=== PATIENT | female | born 1965 | race Caucasian/White ===

== ENCOUNTER 2017-02-12 11:40 | Emergency (ER) | payer OTHER ==
[2017-02-12] MEDS ORDERED: oxyCODONE/Acetamin 5/325 MG* TAB PO ONE (13:42)
[2017-02-12 14:10] VITALS: BP 95/52
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
== END 2017-02-12 14:07 | disposition home or self-care (01) ==
LOC: ED 11:40
DX: R51 Headache (principal); Z87.891 Personal history of nicotine dependence
CPT/HCPCS: 99283; A9270-GY

== ENCOUNTER 2017-08-16 17:40 | Emergency (ER) | payer OTHER ==
--- NOTE | 2017-08-16 19:36 | RAD ---
INDICATION: Right knee pain. TECHNIQUE: 4 views of the right knee were obtained. FINDINGS: The bones are in normal alignment. No joint effusion or fracture is seen. Joint spaces appear maintained. IMPRESSION: NO EVIDENCE FOR FRACTURE.
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
[2017-08-16 22:50] VITALS: BP 102/68
== END 2017-08-16 22:50 | disposition home or self-care (01) ==
LOC: ED 17:40
DX: M25.561 Pain in right knee (principal); Z87.891 Personal history of nicotine dependence
CPT/HCPCS: 99282

== ENCOUNTER 2017-11-06 18:54 | Emergency (ER) | payer OTHER ==
[2017-11-06 19:09] VITALS: BP 125/70
--- NOTE | 2017-11-06 19:12 | UC ---
Respiratory Complaint HPI - HPI Summary HPI Summary: 51 year old female presents with cough, nasal congestion and headache. - History of Current Complaint Chief Complaint: UCRespiratory Stated Complaint: COUGH/COLD Time Seen by Provider: 11/06/17 19:12 Hx Obtained From: Patient Hx Last Menstrual Period: post menopausal Onset/Duration: Lasting Days Severity Initially: Moderate Severity Currently: Moderate Pain Scale Used: 0-10 Numeric - 5 Aggravating Factors: Exertion, Deep Breaths Associated Signs And Symptoms: Positive: Nasal Congestion Related History: Seasonal Allergies - Allergies/Home Medications Allergies/Adverse Reactions: Allergies Allergy/AdvReac Type Severity Reaction Status Date / Time Hydrocodone Allergy Nausea Verified 02/12/17 11:42 Topiramate [From Topamax] Allergy See Comment Verified 11/06/17 19:10 Naproxen AdvReac Severe "MAKES ME Verified 02/12/17 11:42 FEEL WEIRD" Home Medications: Home Medications Phenylephrine-Diphenhydramine- [MUCINEX FAST-MAX DAY/NIGH (Tablet)] 11/06/17 [ History] PMH/Surg Hx/FS Hx/Imm Hx Previously Healthy: Yes Other History Of: Negative For: Anticoagulant Therapy - Surgical History Surgical History: Yes Surgery Procedure, Year, and Place: tubal ligation - Family History Known Family History: Positive: Hypertension, Other - BRCA PGM (), aunt ( ), sister ovarian CA, mom pacemaker - Social History Alcohol Use: Rare Substance Use Type: None Smoking Status (MU): Former Smoker Household Exposure Type: Cigarettes - Immunization History Most Recent Influenza Vaccination: doesn't get Review of Systems Constitutional: Negative Skin: Negative Eyes: Negative ENT: Sore Throat, Nasal Discharge, Sinus Congestion, Sinus Pain/Tenderness Respiratory: Cough Cardiovascular: Negative Gastrointestinal: Negative Genitourinary: Negative Motor: Negative Neurovascular: Negative Musculoskeletal: Negative Neurological: Negative Psychological: Negative All Other Systems Reviewed And Are Negative: Yes Physical Exam Triage Information Reviewed: Yes Vital Signs: Initial Vital Signs Temp 36.4 C 11/06/17 19:03 Pulse 71 11/06/17 19:03 Resp 16 11/06/17 19:03 BP 125/70 11/06/17 19:03 Pulse Ox 99 11/06/17 19:03 Vital Signs Reviewed: Yes Eye Exam: Normal ENT: Positive: Nasal congestion, Nasal drainage, Sinus tenderness Dental Exam: Normal Neck exam: Normal Neck: Positive: 1 Respiratory: Positive: Rhonchi, Wheezing Cardiovascular Exam: Normal Abdominal Exam: Normal Musculoskeletal Exam: Normal Neurological Exam: Normal Psychological Exam: Normal Skin Exam: Normal UC Diagnostic Evaluation - Laboratory O2 Sat by Pulse Oximetry: 99 Respiratory Course/Dx - Differential Dx/Diagnosis Provider Diagnoses: sinus congestion. cough Discharge - Discharge Plan Condition: Stable Disposition: HOME Prescriptions: Amoxicillin/Clavulanate TAB* [Augmentin TAB 875*] 875 mg PO BID #20 tab Benzonatate CAP* [Tessalon 100 MG CAP*] 100 mg PO TID PRN #30 cap PRN Reason: Cough LoraTADine TAB(NF) [Claritin 10 MG TAB(NF)] 10 mg PO DAILY #30 tab Promethazine-Dm [Promethazine/Dextromethor 6.25-15 mg/5Ml] 1 teasp PO BEDTIME PRN #120 ml PRN Reason: Cough Patient Education Materials: Acute Cough (ED) Referrals: Gopal Chen MD [Primary Care Provider] -
[2017-11-06] MEDS ORDERED: Amoxicillin/Clavulanate TAB* 875 MG PO ONE (19:18)
[2017-11-06] MEDS ORDERED: LoraTADine TAB(NF) 10 MG TAB (AUTOSUB to CETIRIZINE) PO ONE (19:19)
[2017-11-06] MEDS ORDERED: Benzonatate CAP* 100 MG PO ONE (19:19)
== END 2017-11-06 19:32 | disposition home or self-care (01) ==
LOC: UCEAST 18:54
DX: J34.89 Other specified disorders of nose and nasal sinuses (principal); R05 Cough; Z87.891 Personal history of nicotine dependence
CPT/HCPCS: 99212; A9270-GY; G0463

== ENCOUNTER 2018-06-29 14:43 | Emergency (ER) | payer OTHER ==
--- NOTE | 2018-06-29 15:11 | UC ---
Cardiac HPI - HPI Summary HPI Summary: The patient is a 52 y/o female presenting to c/o mid-sternal CP since 2 weeks ago worsened today. The pain rated 4/10 in severity and 8/10 at its worst and is described as waxing and waning. She feels like there is something between her throat and chest. The pain radiates to the arm and is aggravated by strenuous activity. She notes SOB, mild diaphoresis , palpitations , throat pain and cough but denies LE edema , LE pain and loss of appetite. The pt has had similar sx before but did not have a stress test. She denies any PMHx of HTN , DM, and GERD and notes a FHx of MA. This is scribe Zo Sandoval documenting for attending Dr. Winter Duran, Dr. Tylor Max , personally performed the services described in this documentation as scribed in my presence and it is both accurate and complete. - History of Current Complaint Chief Complaint: UCChestPain Stated Complaint: CHEST PAIN Time Seen by Provider: 06/29/18 14:55 Hx Obtained From: Patient Hx Last Menstrual Period: post menopausal Onset/Duration: Lasting Weeks - 2 weeks, Worse Since - Today Timing: Constant - Waxing and wanning Initial Severity: Mild - 8/10 at its worst Current Severity: Mild Pain Intensity: 4 Chest Pain Location: Mid Sternal Aggravating Factor(s): Exertion Associated Signs & Symptoms: Positive: Chest Pain, SOB, Diaphoresis, Palpitations, Cough. Negative: Calf Pain/Swelling - Allergy/Home Medications Allergies/Adverse Reactions: Allergies Allergy/AdvReac Type Severity Reaction Status Date / Time hydrocodone Allergy Nausea Verified 06/29/18 14:56 naproxen Allergy See Comment Verified 06/29/18 14:56 topiramate [From Topamax] Allergy See Comment Verified 06/29/18 14:56 Home Medications: Home Medications NK [No Home Medications Reported] 06/29/18 [History Confirmed 06/29/18] PMH/Surg Hx/FS Hx/Imm Hx Previously Healthy: Yes - Negative: HTN, DM, and GERD Other History Of: Negative For: Anticoagulant Therapy - Surgical History Surgical History: Yes Surgery Procedure, Year, and Place: tubal ligation - Family History Known Family History: Positive: Hypertension, Other - BRCA PGM (), aunt ( ), sister ovarian CA, mom pacemaker - Social History Occupation: Employed Full-time Alcohol Use: None Substance Use Type: None Smoking Status (MU): Former Smoker When Did the Patient Quit Smoking/Using Tobacco: 1995 Household Exposure Type: Cigarettes - Immunization History Most Recent Influenza Vaccination: doesn't get Review of Systems Constitutional: Other Skin: Other - Positive: Diaphoresis ENT: Other - Positive: throat pain Respiratory: Shortness Of Breath, Cough Cardiovascular: Palpitations, Chest Pain Gastrointestinal: Negative - Loss of apppetite Musculoskeletal: Negative All Other Systems Reviewed And Are Negative: Yes Physical Exam - Summary Physical Exam Summary: General: well-appearing, no pain distress Skin: warm, color reflects adequate perfusion, dry Head: normal Eyes: EOMI, MAGDY ENT: normal Neck: supple, nontender Respiratory: mild tenderness to palpation of the sternum, CTA, breath sounds present Cardiovascular: RRR Abdomen: soft, epigastric tenderness Bowel: present Musculoskeletal: normal, strength/ROM intact Neurological: sensory/motor intact, A&O x3 Psychological: affect/mood appropriate Triage Information Reviewed: Yes Vital Signs: Initial Vital Signs Temp 97.2 F 06/29/18 14:48 Pulse 62 06/29/18 14:48 Resp 16 06/29/18 14:48 BP 104/70 06/29/18 14:48 Pulse Ox 97 06/29/18 14:48 Vital Signs Reviewed: Yes Diagnostics - EKG EKG Comments: 14:45 Flipped T wave in Lead III Cardiac Rate: NL - 61 bpm Cardiac Rhythm: Sinus: Normal Ectopy: None - Assessment/Plan Course Of Treatment: TRANSPORTED BY AMBULANCE TO EMERGENCY DEPARTMENT. - Clinical Impression Provider Diagnoses: CHEST PAIN Discharge - Sign-Out/Discharge Documenting (check all that apply): Patient Departure - Discharge Plan Condition: Stable Disposition: TRANS HIGHER LVL OF CARE FAC Referrals: Gopal Chen MD [Primary Care Provider] - - Billing Disposition and Condition Condition: STABLE Disposition: Trans Higher Lvl of Care Fac
[2018-06-29] MEDS ORDERED: Aspirin 81 mg CHEW TAB* 81 MG TAB.CHEW PO ONE (15:12)
[2018-06-29] MEDS ORDERED: Nitroglycerin TAB 0.4 MG* 0.4 MG TAB SL ONE (15:13)
[2018-06-29] MEDS ORDERED: NS 0.9% 1000 ML* 1,000 ML IV SCH (15:15)
[2018-06-29] MEDS ORDERED: NS 0.9% 1000 ML* 1,000 ML IV ONE (15:45)
[2018-06-29 15:49] VITALS: BP 104/58
== END 2018-06-29 15:53 | disposition short-term general hospital (02) ==
LOC: UCEAST 14:43
DX: R07.89 Other chest pain (principal); Z87.891 Personal history of nicotine dependence
CPT/HCPCS: 93005; 99214; A9270-GY; G0463

== ENCOUNTER 2018-06-29 16:13 | Emergency (ER) | payer OTHER ==
[2018-06-29] MEDS ORDERED: Lidocaine 2% VISCOUS* 15 ML UDC PO ONE (16:28)
[2018-06-29] MEDS ORDERED: Al Hydrox/Mg Hydrox/Simet LIQ* 30 ML UDC PO ONE (16:28)
[2018-06-29 16:49] LABS: ABS Basophils 0 10^3/ul (0-0.2); ABS Eosinophils 0.1 10^3/ul (0-0.6); ABS Lymphocytes 2.3 10^3/ul (1.0-4.8); ABS Monocytes 0.5 10^3/ul (0-0.8); ABS Neutrophils 2.8 10^3/ul (1.5-7.7); ABS Nucleated RBC 0 10^3/ul; Eosinophil % 1.9 % (0-6); Hematocrit 40 % (35-47); Hemoglobin 13.4 g/dl (12.0-16.0); Lymphocyte % 39.9 % (25-47); Mean Corpuscular HGB Conc 34 g/dl (31-36); Mean Corpuscular Hemoglobin 29 pg (27-31); Mean Corpuscular Volume 87 fL (80-97); Mean Platelet Volume 7.9 um3 (7.4-10.4); Nucleated Red Blood Cells % 0.1; Platelet Count 214 10^3/ul (150-450); Red Blood Count 4.57 10^6/ul (4.00-5.40); Red Cell Distribution Width 13 % (10.5-15); White Blood Count 5.9 10^3/ul (3.5-10.8)
--- NOTE | 2018-06-29 16:56 | RAD ---
Indication: Chest pain. Sudden onset of discomfort. No relief with nitroglycerin. Comparison: August 05, 2014 CT abdomen and June 07, 2013 chest radiograph. Technique: Upright AP 1635 hours Report: Elevated lung volumes and both diffuse mild prominence of the interstitial markings and patchy rarefaction of the mid to upper lung zone interstitial markings. No focal pulmonary lesion, compelling alveolar consolidation, pleural effusion, pneumothorax. The heart, pulmonary vasculature, and mediastinal contours are unremarkable. IMPRESSION: #. Stigmata of probable obstructive lung disease. No acute pulmonary or cardiac process evident.
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
[2018-06-29 17:11] LABS: EGFR Non-African American 83.4 (>60)
[2018-06-29 17:49] LABS: Urine Appearance Clear; Urine Blood Negative (Negative); Urine Color Yellow; Urine Ketones Negative (Negative); Urine Protein Negative (Negative); Urine Red Blood Cell Trace(0-2/hpf) (Absent); Urine Specific Gravity 1.011 (1.010-1.030); Urine Urobilinogen Negative (Negative); Urine White Blood Cell Trace(0-5/hpf) (Absent)
[2018-06-29 19:15] VITALS: BP 112/60
== END 2018-06-29 19:14 | disposition home or self-care (01) ==
LOC: ED 16:13
DX: R07.89 Other chest pain (principal); R00.1 Bradycardia, unspecified; F32.9 Major depressive disorder, single episode, unspecified; Z87.891 Personal history of nicotine dependence; Z88.8 Allergy status to other drugs, medicaments and biological substances; Z88.5 Allergy status to narcotic agent
CPT/HCPCS: 36415; 71045; 80053; 81003; 81015; 82550; 82553; 83605; 83735; 83880; 84443; 84484; 85025; 85379; 87086; 93005; 99283; A9270-GY

== ENCOUNTER 2018-09-10 09:26 | Emergency (ER) | payer OTHER ==
[2018-09-10 09:50] VITALS: BP 97/44
[2018-09-10] MEDS ORDERED: Lidocaine 4% TOPICAL* 50 ML TOP.SOLN TOPICAL ONE (10:02)
--- NOTE | 2018-09-10 10:15 | UC ---
HPI Wound/Suture Re-check - HPI Summary HPI Summary: Here for packing removal and wound recheck after skin I&D on back 2 days ago. Denies new fever or increasing pain. - History Of Current Complaint Chief Complaint: UCWounds Stated Complaint: WOUND RECHECK Time Seen by Provider: 09/10/18 09:43 Hx Obtained From: Patient Hx Last Menstrual Period: post menopausal Onset/Duration: Sudden Onset Severity: Mild Pain Intensity: 0 - Allergies/Home Medications Allergies/Adverse Reactions: Allergies Allergy/AdvReac Type Severity Reaction Status Date / Time hydrocodone Allergy Nausea Verified 09/10/18 09:50 naproxen Allergy See Comment Verified 09/10/18 09:50 topiramate [From Topamax] Allergy See Comment Verified 09/10/18 09:50 PMH/Surg Hx/FS Hx/Imm Hx Other Cardiovascular History: bradycardia Other History Of: Negative For: Anticoagulant Therapy - Surgical History Surgical History: Yes Surgery Procedure, Year, and Place: tubal ligation - Family History Known Family History: Positive: Hypertension, Other - BRCA PGM (), aunt ( ), sister ovarian CA, mom pacemaker - Social History Occupation: Employed Full-time Alcohol Use: None Substance Use Type: None Smoking Status (MU): Former Smoker When Did the Patient Quit Smoking/Using Tobacco: 1995 Household Exposure Type: Cigarettes Cessation Counseling: Patient Advised to Stop - Immunization History Most Recent Influenza Vaccination: doesn't get Review of Systems Constitutional: Negative Skin: Other - wound on back Eyes: Negative ENT: Negative Respiratory: Negative Cardiovascular: Negative Gastrointestinal: Negative Genitourinary: Negative Motor: Negative Neurovascular: Negative Musculoskeletal: Negative Neurological: Negative Psychological: Negative Is Patient Immunocompromised?: No All Other Systems Reviewed And Are Negative: Yes Physical Exam Triage Information Reviewed: Yes Appearance: Well-Appearing, No Pain Distress, Well-Nourished Vital Signs: Initial Vital Signs Temp 97.1 F 09/10/18 09:46 Pulse 59 09/10/18 09:46 Resp 18 09/10/18 09:46 BP 97/44 09/10/18 09:46 Pulse Ox 100 09/10/18 09:46 Vital Signs Reviewed: Yes Eye Exam: Normal Eyes: Positive: Conjunctiva Clear ENT Exam: Normal Neck exam: Normal Respiratory Exam: Normal Respiratory: Positive: Chest non-tender, Lungs clear, Normal breath sounds, No respiratory distress Cardiovascular Exam: Normal Cardiovascular: Positive: RRR, No Murmur Musculoskeletal Exam: Normal Neurological Exam: Normal Neurological: Positive: Alert Psychological Exam: Normal Skin Exam: Other - packing in wound on back present on exam. Packing removed with some pain, no pus and only minimal bloody drainage. Incision approx 2cm in length, visible wound cavity. Flushed with 4% lidocaine, repacked with iodoform. Pt lindsay well. Wound redressed with a nonstick dressing. Skin surrounding wound has postinflammatory hyperpigmentation, no streaking or drainage Course/Dx - Course Course Of Treatment: Instructed on post-I&D care. - Differential Dx - Laceration/Wound Provider Diagnoses: Wound recheck on back. skin I&D. inclusion cyst Discharge - Sign-Out/Discharge Documenting (check all that apply): Patient Departure All imaging exams completed and their final reports reviewed: No Studies - Discharge Plan Condition: Stable Disposition: HOME Patient Education Materials: Epidermal Inclusion Cysts (ED) Referrals: Gopal Chen MD [Primary Care Provider] - 3 Days Additional Instructions: Your wound is healing very well without signs of infection. It was a large cavity, however, so I have replaced some packing and would like you to see your primary care provider in 3 days for another recheck and possible re-packing. - Billing Disposition and Condition Condition: STABLE Disposition: Home
== END 2018-09-10 10:30 | disposition home or self-care (01) ==
LOC: UCEAST 09:26
DX: L72.0 Epidermal cyst (principal); Z88.6 Allergy status to analgesic agent; Z88.5 Allergy status to narcotic agent; Z88.8 Allergy status to other drugs, medicaments and biological substances; Z87.891 Personal history of nicotine dependence
CPT/HCPCS: 99211; G0463

== ENCOUNTER 2018-11-06 14:40 | Emergency (ER) | payer OTHER ==
[2018-11-06 14:55] VITALS: BP 118/53
--- NOTE | 2018-11-06 14:58 | UC ---
Throat Pain/Nasal Pratik HPI - HPI Summary HPI Summary: 52-year-old woman comes to clinic today with a chief complaint of runny nose sore throat and her voice going worse and cough for a little more than 8 days. No recent fever. His she has a postnasal drip that is causing the cough. Not receiving any wheezes. Using Mucinex which does help with the symptoms. Her voice was hoarse with course of the day she feels because of the postnasal drip. No complaint at any sinus pain. - History of Current Complaint Chief Complaint: UCRespiratory Stated Complaint: COUGH Time Seen by Provider: 11/06/18 14:49 Hx Last Menstrual Period: post menopausal Pain Intensity: 0 - Allergies/Home Medications Allergies/Adverse Reactions: Allergies Allergy/AdvReac Type Severity Reaction Status Date / Time hydrocodone Allergy Nausea Verified 11/06/18 14:55 naproxen Allergy See Comment Verified 11/06/18 14:55 topiramate [From Topamax] Allergy See Comment Verified 11/06/18 14:55 PMH/Surg Hx/FS Hx/Imm Hx Previously Healthy: Yes GI/ History: Gastroesophageal Reflux Other History Of: Negative For: Anticoagulant Therapy - Surgical History Surgical History: Yes Surgery Procedure, Year, and Place: tubal ligation - Family History Known Family History: Positive: Hypertension, Other - BRCA PGM (), aunt ( ), sister ovarian CA, mom pacemaker - Social History Alcohol Use: None Substance Use Type: None Smoking Status (MU): Former Smoker When Did the Patient Quit Smoking/Using Tobacco: 1995 Household Exposure Type: Cigarettes - Immunization History Most Recent Influenza Vaccination: doesn't get Review of Systems All Other Systems Reviewed And Are Negative: Yes Constitutional: Positive: Negative Skin: Positive: Negative Eyes: Positive: Negative ENT: Positive: Sore Throat, Nasal Discharge, Sinus Congestion Respiratory: Positive: Cough Cardiovascular: Positive: Negative Gastrointestinal: Positive: Negative Motor: Positive: Negative Neurovascular: Positive: Negative Musculoskeletal: Positive: Negative Neurological: Positive: Negative Psychological: Positive: Negative Is Patient Immunocompromised?: No Physical Exam Triage Information Reviewed: Yes Appearance: No Pain Distress, Well-Nourished, Ill-Appearing - mild Vital Signs: Initial Vital Signs Temp 97.3 F 11/06/18 14:50 Pulse 67 11/06/18 14:50 Resp 18 12/17/18 14:50 BP 118/53 11/06/18 14:50 Pulse Ox 99 11/06/18 14:50 Vital Signs Reviewed: Yes Eye Exam: Normal Eyes: Positive: Conjunctiva Clear ENT: Positive: Pharyngeal erythema, Nasal congestion, Nasal drainage, TMs normal Neck exam: Normal Neck: Positive: Supple Respiratory: Positive: Lungs clear, Normal breath sounds, No respiratory distress, No accessory muscle use Cardiovascular: Positive: RRR Musculoskeletal Exam: Normal Musculoskeletal: Positive: Strength Intact, ROM Intact Neurological Exam: Normal Neurological: Positive: Alert, Muscle Tone Normal Psychological Exam: Normal Psychological: Positive: Age Appropriate Behavior Skin Exam: Normal Throat Pain/Nasal Course/Dx - Course Course Of Treatment: DISCUSSED VIRAL VERSES BACTERIAL INFECTION AND THE ROLE OF ANTIBIOTICS. THE PATIENT WISHES TO BE ON ANTIBIOTIC AT THIS TIME. - Differential Dx/Diagnosis Provider Diagnosis: Sinusitis Discharge - Sign-Out/Discharge Documenting (check all that apply): Patient Departure All imaging exams completed and their final reports reviewed: No Studies - Discharge Plan Condition: Stable Disposition: HOME Prescriptions: Amoxicillin/Clavulanate TAB* [Augmentin TAB 875*] 875 mg PO BID #20 tab Patient Education Materials: Sinusitis (ED) Referrals: Gopal Chen MD [Primary Care Provider] - Additional Instructions: FOLLOW UP WITH YOUR DOCTOR IF NOT COMPLETELY IMPROVED. GET RECHECKED FOR ANY WORSENING OF YOUR CONDITION OR QUESTIONS OR CONCERNS. - Billing Disposition and Condition Condition: STABLE Disposition: Home
== END 2018-11-06 15:00 | disposition home or self-care (01) ==
LOC: UCEAST 14:40
DX: J32.9 Chronic sinusitis, unspecified (principal); Z88.5 Allergy status to narcotic agent; Z88.8 Allergy status to other drugs, medicaments and biological substances; Z87.891 Personal history of nicotine dependence
CPT/HCPCS: 99212; G0463

== ENCOUNTER 2019-08-02 10:30 | Emergency (ER) | payer OTHER ==
[2019-08-02 10:41] VITALS: BP 115/60
--- NOTE | 2019-08-02 11:16 | UC ---
Skin Complaint HPI - HPI Summary HPI Summary: 53 y/o female presents to the urgent care c/o infected cyst in her RT side of the mid back for the past 2 days. Pt reports she had a similar cyst last year in the same spot and her PCP did an I&D and Rx antibiotics. Pt reports cysts was draining a yellowish discharge yesterday. She is concerned also b/c there is a mole over the cysts. Pain at touch is 1/10. Pt denies Hx of MRSA, fever, SOB, dizziness, chest pain, abdominal pain, N/V/D. She has not taken anything or applied anything to alleviate symptoms. - History of Current Complaint Chief Complaint: UCSkin Time Seen by Provider: 08/02/19 11:14 Stated Complaint: SKIN COMPLAINT Hx Obtained From: Patient Hx Last Menstrual Period: post menopausal ?: No Onset/Duration: Gradual Onset, Lasting Days - 2 days, Still Present, Worse Since - today Skin Exposure Onset/Duration: Days Ago - 2 days ago, Worse Since: - last night Timing: Constant Onset Severity: Mild Current Severity: Moderate Pain Intensity: 1 Pain Scale Used: 0-10 Numeric Location: Discrete - RT mid back cyst Character: Swelling, Redness, Raised, Painful Aggravating Factor(s): Clothing - bra, Touch Alleviating Factor(s): Nothing Associated Signs & Symptoms: Positive: Rash - RT mid back painful cyst, Drainage - yellowish last night, Tenderness. Negative: Nausea, Vomiting, Numbness, Fever, Chills Related History: Other: - Pt had a similar cyst last years - Allergy/Home Medications Allergies/Adverse Reactions: Allergies Allergy/AdvReac Type Severity Reaction Status Date / Time hydrocodone Allergy Nausea Verified 08/04/19 10:35 naproxen Allergy See Comment Verified 08/04/19 10:35 topiramate [From Topamax] Allergy See Comment Verified 08/04/19 10:35 PMH/Surg Hx/FS Hx/Imm Hx Previously Healthy: Yes - Pt denies PMHX Other History Of: Negative For: Anticoagulant Therapy - Surgical History Surgical History: Yes Surgery Procedure, Year, and Place: tubal ligation - Family History Known Family History: Positive: Hypertension, Other - BRCA PGM (), aunt ( ), sister ovarian CA, mom pacemaker Family History: Dyslipidemia - Social History Occupation: Employed Full-time Lives: With Family Alcohol Use: None Substance Use Type: None Smoking Status (MU): Former Smoker When Did the Patient Quit Smoking/Using Tobacco: 1995 Household Exposure Type: Cigarettes - Immunization History Most Recent Influenza Vaccination: doesn't get Review of Systems All Other Systems Reviewed And Are Negative: Yes Constitutional: Positive: Negative Skin: Positive: Rash - RT mid back painful cyst w/ yellowish drainage last night Eyes: Positive: Negative ENT: Positive: Negative Respiratory: Positive: Negative Cardiovascular: Positive: Negative Gastrointestinal: Positive: Negative Genitourinary: Positive: Negative Motor: Positive: Negative Neurovascular: Positive: Negative Musculoskeletal: Positive: Negative Neurological: Positive: Negative Psychological: Positive: Negative Is Patient Immunocompromised?: No Physical Exam - Summary Physical Exam Summary: Vital Signs Reviewed: Yes General: well developed, well nourished female sitting in the examining table w/ o any apparent distress Eye Exam: Normal Eyes: Positive: Conjunctiva Clear - PERRLA, EOMI, fundi grossly normal ENT: Positive: Normal ENT inspection, Hearing grossly normal, Pharynx normal, TMs normal Neck: Positive: Supple, Nontender, No Lymphadenopathy Respiratory: Positive: Chest non-tender, Lungs clear, Normal breath sounds, No respiratory distress Cardiovascular: Positive: RRR, No Murmur, Pulses Normal, Brisk Capillary Refill Abdomen Description: Positive: Nontender, No Organomegaly, Soft. Negative: CVA Tenderness (R), CVA Tenderness (L) Bowel Sounds: Positive: Present Musculoskeletal: Positive: Strength Intact, ROM Intact, No Edema Neurological: Positive: Alert, Muscle Tone Normal Psychological Exam: Normal Skin: Positive: RT side of the mid back with a small erythematous pustule that is indurated and fluctuant, tender to palpation, swollen, and warm to touch about 1.5cm x1.5cm in size. FROM of Back, sensation is intact, capillary refill WNL, reflexes WNL. small black mole on top of the pustule Triage Information Reviewed: Yes Vital Signs: Initial Vital Signs Temp 98 F 08/02/19 10:38 Pulse 65 08/02/19 10:38 Resp 16 08/02/19 10:38 BP 115/60 08/02/19 10:38 Pulse Ox 100 08/02/19 10:38 Course/Dx - Course Course Of Treatment: 53 y/o female presents to the urgent care c/o infected cyst in her RT side of the mid back for the past 2 days. Pt reports she had a similar cyst last year in the same spot and her PCP did an I&D and Rx antibiotics. Pt reports cysts was draining a yellowish discharge yesterday. She is concerned also b/c there is a mole over the cysts. Pain at touch is 1/10. Pt denies Hx of MRSA, fever, SOB, dizziness, chest pain, abdominal pain, N/V/D. She has not taken anything or applied anything to alleviate symptoms. Hx obtained. Pt is hemodynamically stable, w/ RT side of the mid back with a small erythematous pustule that is indurated and fluctuant, tender to palpation, swollen, and warm to touch about 1.5cm x1.5cm in size on examination.I&D of abscess procedure:The procedure was explained and consent obtained. [place] protocol performed. The wound was anesthetized with 2mL of [place] 1% with good anesthesia. Sterile drape and prep were done. The fluctuant center was incised with #11 blade scalpel. A severe amount of caseous material was expressed . wound cultures obtained and sent to lab top r/o MRSA or E.Coli. The wound was probed for loculated areas and irrigated with normal saline. The wound was packed loosely with wick or left open. Bacitracin topical ointment applied and wound covered with sterile dressing. The patient tolerated the procedure well. Wound culture form last year was positive for E.Coli. Pt Rx Bactrim PO which will cover MRSA and E.Coli and Bacitrain oint as directed below. Advised to return to the urgent care for wound check up in 2 days. Pt advised fever develops and pain increase despite ABX to go immediately to the ER for further management. Pt strongly advised to f /u w/ Water Quality Control Engineer for a check up on her mole for further management. Pt understood and agreed with D/C instructions. Left the clinic ambulating A&OX3 and feeling better. . - Differential Diagnoses - Skin Complaint Differential Diagnoses: Abscess, Cellulitis, Contact Dermatitis, Impetigo, MRSA - Diagnoses Provider Diagnosis: Abscess of back Discharge ED - Sign-Out/Discharge Documenting (check all that apply): Patient Departure - D/C home All imaging exams completed and their final reports reviewed: No Studies - Discharge Plan Condition: Stable Disposition: HOME Prescriptions: Bacitracin OINTMENT* 1 applic TOPICAL BID #1 tube Sulfamethox/Trimethoprim DS* [Bactrim DS 800/160 TAB*] 1 tab PO BID #10 tab Patient Education Materials: Abscess (ED) Referrals: Gopal Chen MD [Primary Care Provider] - 2 Days Genoveva Metcalf [Medical Doctor] - 1 Week Additional Instructions: 1-Please take full course of antibiotic Bactrim PO to avoid resistance. Keep wound clean and dry with a sterile dressing. Apply bacitracin topical as directed 2- F/u wound check up in 2 days with your PCP or at the urgent care for removal of packing 3-. Take tylenol PO PO q6-8hrs prn for pain or swelling. 4-If you develop fever or redness despite antibiotic please go to the ER immediately or return to the Urgent care. 5- Wound culture sent to lab, if any abnormal result you will receive a call from us. 6- Please f/u w/ Water Quality Control Engineer Dr Metcalf for further management on the black mole that is on top of abscess as explained. - Billing Disposition and Condition Condition: STABLE Disposition: Home
[2019-08-02] MEDS ORDERED: Lidocaine 2% PF * 5 ML VIAL INJ ONE (11:32)
== END 2019-08-02 12:29 | disposition home or self-care (01) ==
LOC: UCEAST 10:30
DX: L02.212 Cutaneous abscess of back [any part, except buttock and flank] (principal); Z87.891 Personal history of nicotine dependence
CPT/HCPCS: 10060; 87070; 87077; 87186; 87205; 99212; G0463

== ENCOUNTER 2019-08-04 10:28 | Emergency (ER) | payer OTHER ==
[2019-08-04 10:34] VITALS: BP 96/37
--- NOTE | 2019-08-04 10:48 | UC ---
Skin Complaint HPI - HPI Summary HPI Summary: 53-year-old female who had an incision and drainage of an abscess in her mid back on August 02 at this facility. She has continued her antibiotic and is doing well with no complaints area seems to be healing. She is here for recheck - History of Current Complaint Chief Complaint: UCWounds Time Seen by Provider: 08/04/19 10:38 Stated Complaint: F/U SPOT ON BACK. NEEDS PACKING OUT Hx Obtained From: Patient Hx Last Menstrual Period: post menopausal ?: No Onset/Duration: Gradual Onset Skin Exposure Onset/Duration: Days Ago Timing: Constant Onset Severity: Moderate Current Severity: Mild Pain Intensity: 1 Location: Other - Mid back, just underneath her bra strap Character: Pruritus, Redness - Area still has minimal erythema but much improved. Aggravating Factor(s): Clothing - The areas located just underneath her bra strap. Alleviating Factor(s): Other - Incision and drainage done on August 02 and patient has been on Bactrim since then. Associated Signs & Symptoms: Positive: Negative - Allergy/Home Medications Allergies/Adverse Reactions: Allergies Allergy/AdvReac Type Severity Reaction Status Date / Time hydrocodone Allergy Nausea Verified 08/04/19 10:35 naproxen Allergy See Comment Verified 08/04/19 10:35 topiramate [From Topamax] Allergy See Comment Verified 08/04/19 10:35 PMH/Surg Hx/FS Hx/Imm Hx Previously Healthy: Yes Cardiovascular History: Other - Bradycardia Other History Of: Negative For: Anticoagulant Therapy - Surgical History Surgical History: Yes Surgery Procedure, Year, and Place: tubal ligation - Family History Known Family History: Positive: Hypertension, Other - BRCA PGM (), aunt ( ), sister ovarian CA, mom pacemaker - Social History Occupation: Employed Full-time Alcohol Use: None Substance Use Type: None Smoking Status (MU): Former Smoker When Did the Patient Quit Smoking/Using Tobacco: 1995 Household Exposure Type: Cigarettes - Immunization History Most Recent Influenza Vaccination: doesn't get Review of Systems All Other Systems Reviewed And Are Negative: Yes Skin: Positive: Other - Healing abscess mid back. Is Patient Immunocompromised?: No Physical Exam Triage Information Reviewed: Yes Appearance: Well-Appearing, No Pain Distress, Well-Nourished Vital Signs: Initial Vital Signs Temp 97 F 08/04/19 10:30 Pulse 56 08/04/19 10:30 Resp 16 08/04/19 10:30 BP 96/37 08/04/19 10:30 Pulse Ox 100 08/04/19 10:30 Vital Signs Reviewed: Yes Skin: Positive: Other - I removed the small packing. The area has minimal erythema, no drainage, nontender on palpation. The area seems to be healing well. Course/Dx - Course Course Of Treatment: The patient is comfortable here. She is to continue her antibiotic and follow- up with the [employer] senior officer. I applied a bandage over that and she desired more of a bulky bandage fictitious go to work today which requires a lot of lifting and she is afraid that will irritate the area. - Diagnoses Provider Diagnosis: Encounter for wound re-check, Abscess of back Discharge ED - Sign-Out/Discharge Documenting (check all that apply): Patient Departure All imaging exams completed and their final reports reviewed: No Studies - Discharge Plan Condition: Good Disposition: HOME Patient Education Materials: Abscess (ED) Referrals: Gopal Chen MD [Primary Care Provider] - Additional Instructions: Continue warm moist compresses to the area or warm shower or bath 3 or 4 times a day. Follow-up with the [employer] senior officer as we discussed. Continue your antibiotic. Keep the area covered as much as possible to avoid your bra strap from irritating it. - Billing Disposition and Condition Condition: GOOD Disposition: Home
== END 2019-08-04 10:54 | disposition home or self-care (01) ==
LOC: UCEAST 10:28
DX: L02.212 Cutaneous abscess of back [any part, except buttock and flank] (principal); Z87.891 Personal history of nicotine dependence
CPT/HCPCS: 99212; G0463

== ENCOUNTER 2019-12-13 17:13 | Emergency (ER) | payer OTHER ==
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
[2019-12-13] MEDS ORDERED: Ondansetron ODT TAB* 4 MG SL ONE (17:37)
[2019-12-13 17:42] LABS: Influenza B Molecular POSITIVE (Negative)
[2019-12-13] MEDS ORDERED: Oseltamivir CAP* 75 MG CAP PO ONE (17:50)
[2019-12-13 18:32] VITALS: BP 138/89
== END 2019-12-13 18:30 | disposition home or self-care (01) ==
LOC: ED 17:13
DX: J10.1 Influenza due to other identified influenza virus with other respiratory manifestations (principal); F32.9 Major depressive disorder, single episode, unspecified; Z98.51 Tubal ligation status; Z87.891 Personal history of nicotine dependence; Z88.5 Allergy status to narcotic agent; Z88.6 Allergy status to analgesic agent; Z88.8 Allergy status to other drugs, medicaments and biological substances
CPT/HCPCS: 99283; A9270-GY

== ENCOUNTER 2019-12-30 11:25 | Emergency (ER) | payer OTHER ==
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
[2019-12-30 12:07] LABS: ABS Basophils 0.1 10^3/ul (0-0.2); ABS Eosinophils 0.1 10^3/ul (0-0.6); ABS Lymphocytes 1.9 10^3/ul (1.0-4.8); ABS Monocytes 0.4 10^3/ul (0-0.8); ABS Neutrophils 4.7 10^3/ul (1.5-7.7); Eosinophil % 1.3 %; Hematocrit 43 % (35-47); Hemoglobin 14.5 g/dL (12.0-16.0); Lymphocyte % 26.4 %; Mean Corpuscular HGB Conc 34 g/dL (31-36); Mean Corpuscular Hemoglobin 30 pg (27-31); Mean Corpuscular Volume 88 fL (80-97); Platelet Count 322 10^3/uL (150-450); Red Blood Count 4.83 10^6 /uL (3.70-4.87); Red Cell Distribution Width 13 % (10-15); White Blood Count 7.1 10^3/uL (3.5-10.8)
[2019-12-30 12:16] LABS: Urine Appearance Clear; Urine Bilirubin Negative (Negative); Urine Blood Negative (Negative); Urine Color Straw; Urine Glucose Negative (Negative); Urine Ketones Negative (Negative); Urine Nitrite Negative (Negative); Urine Protein Negative (Negative); Urine Specific Gravity 1.004 (1.010-1.030); Urine Urobilinogen Negative (Negative)
[2019-12-30 12:24] LABS: Albumin 4.6 g/dL (3.2-5.2); Albumin/Globulin Ratio 1.5 (1-3); BUN/Creatinine Ratio 21.8 (8-20); Calcium 10.3 mg/dL (8.6-10.3); EGFR African American 92.8 (>60); EGFR Non-African American 76.7 (>60); Magnesium 2.1 mg/dL (1.9-2.7); Potassium 3.6 mmol/L (3.5-5.0); Total Bilirubin 0.7 mg/dL (0.2-1.0); Total Protein 7.6 g/dL (6.4-8.9)
[2019-12-30 12:26] LABS: Troponin I 0.01 ng/mL (<0.03)
[2019-12-30 12:28] LABS: Urine Bacteria Absent (Absent); Urine Red Blood Cell Trace(0-2/hpf) (Absent); Urine White Blood Cell Trace(0-5/hpf) (Absent)
[2019-12-30 12:28] LABS: CKMB ng/mL 2.6 ng/mL (0.6-6.3)
[2019-12-30 13:11] LABS: TSH (Thyroid Stimulating Horm) 2.1 mcIU/mL (0.34-5.60)
[2019-12-30] MEDS ORDERED: NS 0.9% 1000 ML** 1,000 ML IV ONE (13:43)
[2019-12-30 15:27] VITALS: BP 112/64
== END 2019-12-30 15:36 | disposition home or self-care (01) ==
LOC: ED 11:25
DX: R07.89 Other chest pain (principal); R06.00 Dyspnea, unspecified; R42 Dizziness and giddiness; Z88.6 Allergy status to analgesic agent; Z88.5 Allergy status to narcotic agent; Z88.8 Allergy status to other drugs, medicaments and biological substances; Z87.891 Personal history of nicotine dependence
CPT/HCPCS: 36415; 71046; 80053; 81003; 81015; 82550; 82553; 83605; 83735; 83880; 84443; 84484; 85025; 85730; 87086; 93005; 96360; 99283